=== PATIENT | female | born 1995 | race American Indian/Alaskan Native ===

== ENCOUNTER 2017-10-04 11:28 | Emergency (ER) | payer SELFPAY ==
[2017-10-04 11:57] VITALS: BP 117/63
[2017-10-04 12:50] LABS: Bilirubin,Urine NEG (Negative); Blood,Urine NEG (Negative); Color,Urine Yellow (Yellow); Mucus,Urine FEW /HPF; Protein,Urine <15 mg/dL mg/dL (Negative); Urobilinogen,Urine < 2.0 mg/dL (<2.0)
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
== END 2017-10-04 14:18 | disposition home or self-care (01) ==
LOC: ED 11:28
DX: M54.9 Dorsalgia, unspecified (principal); J45.909 Unspecified asthma, uncomplicated; V87.7XXA Person injured in collision between other specified motor vehicles (traffic), initial encounter; Y93.89 Activity, other specified; Y99.8 Other external cause status; Y92.410 Unspecified street and highway as the place of occurrence of the external cause
CPT/HCPCS: 36415; 81001; 84703; 99283

== ENCOUNTER 2019-05-26 06:22 | Emergency (ER) | payer SELFPAY ==
--- NOTE | 2019-05-26 07:20 | Emergency Department Report ---
- General Chief Complaint: Upper Respiratory Infection Stated Complaint: BODY PAINS/CHILLS Time Seen by Provider: 05/26/19 07:11 Source: patient Mode of arrival: Ambulatory Limitations: No Limitations - History of Present Illness Initial Comments: 23-year-old female with a past medical history of asthma presents to the ER today complaining of flulike symptoms since yesterday. She reports rhinorrhea, nasal congestion, cough, subjective fevers, generalized body aches and chills. She reports pain in the chest when she coughs. She denies any obvious ill contacts. She reports no wheezing or SOB. She does admit that she is out of her inhaler, and she has been out for "a while". She has not currently have a primary care doctor. She reports no GI or symptoms. MD Complaint: fever (subjective), cough, sore throat, rhinorrhea, nasal congestion -: Sudden Severity: moderate Quality: aching Consistency: constant Improves With: other (Mild relief with nyquil) Associated Symptoms: fever, myalgias, rhinorrhea, nasal congestion, cough, chest pain (when coughing). denies: shortness of breath, abdominal pain, nausea, vomiting, diarrhea, rash, confusion, right sweats, weight loss, epistaxis, hoarseness, ear pain Treatments Prior to Arrival: "cold medicine" - Related Data Previous Rx's Medication Instructions Recorded Last Taken Type Cyclobenzaprine [Flexeril] 10 mg PO TID PRN #10 tablet 10/04/17 Unknown Rx Ibuprofen [Motrin] 600 mg PO Q8H PRN #20 tablet 10/04/17 Unknown Rx ALBUTEROL Inhaler (OR & NICU) 2 puff IH QID PRN #8.5 gram 05/26/19 Unknown Rx [ProAir HFA Inhaler] Ibuprofen [Motrin] 800 mg PO Q8HR PRN #30 tablet 05/26/19 Unknown Rx guaiFENesin/DEXTROMETHORPHAN 1 each PO Q12HR PRN #20 tab.er.12h 05/26/19 Unknown Rx [Mucinex Dm ER 600-30 mg Tablet] Allergies Allergy/AdvReac Type Severity Reaction Status Date / Time No Known Allergies Allergy Unverified 10/04/17 11:57 ED Review of Systems ROS: Stated complaint: BODY PAINS/CHILLS Other details as noted in HPI Comment: All other systems reviewed and negative Constitutional: chills, fever ENT: throat pain, congestion Respiratory: cough. denies: shortness of breath, SOB with exertion, SOB at rest, stridor, wheezing Cardiovascular: chest pain (with cough) Gastrointestinal: denies: abdominal pain, nausea, vomiting, diarrhea Genitourinary: denies: dysuria Musculoskeletal: myalgia ED Past Medical Hx - Past Medical History Previous Medical History?: Yes Hx Asthma: Yes - Surgical History Past Surgical History?: No - Social History Smoking Status: Never Smoker Substance Use Type: None - Medications Home Medications: Home Medications Medication Instructions Recorded Confirmed Last Taken Type Cyclobenzaprine [Flexeril] 10 mg PO TID PRN #10 tablet 10/04/17 Unknown Rx Ibuprofen [Motrin] 600 mg PO Q8H PRN #20 tablet 10/04/17 Unknown Rx ALBUTEROL Inhaler (OR & NICU) 2 puff IH QID PRN #8.5 gram 05/26/19 Unknown Rx [ProAir HFA Inhaler] Ibuprofen [Motrin] 800 mg PO Q8HR PRN #30 tablet 05/26/19 Unknown Rx guaiFENesin/DEXTROMETHORPHAN 1 each PO Q12HR PRN #20 tab.er.12h 05/26/19 Unknown Rx [Mucinex Dm ER 600-30 mg Tablet] ED Physical Exam - General Limitations: No Limitations General appearance: alert, in no apparent distress - Head Head exam: Present: atraumatic, normocephalic - Eye Eye exam: Present: normal appearance, PERRL, EOMI Pupils: Present: normal accommodation - ENT ENT exam: Present: mucous membranes moist - Expanded ENT Exam Expanded Mouth exam: Absent: drooling, trismus, muffled voice Throat exam: Positive: tonsillar erythema. Negative: tonsillar exudate, R peritonsillar mass, L peritonsillar mass - Neck Neck exam: Present: normal inspection, full ROM, lymphadenopathy. Absent: tenderness, meningismus - Respiratory Respiratory exam: Present: normal lung sounds bilaterally - Cardiovascular Cardiovascular Exam: Present: regular rate, normal rhythm, normal heart sounds - GI/Abdominal GI/Abdominal exam: Present: soft. Absent: tenderness - Extremities Exam Extremities exam: Present: normal inspection, full ROM - Back Exam Back exam: Present: normal inspection, full ROM - Neurological Exam Neurological exam: Present: alert, altered, oriented X3, CN II-XII intact, nor mal gait - Psychiatric Psychiatric exam: Present: normal affect - Skin Skin exam: Present: intact ED Course Vital Signs 05/26/19 05/26/19 06:28 09:39 Temperature 99.9 F H Pulse Rate 95 H 86 Respiratory 18 16 Rate Blood Pressure 113/70 Blood Pressure 115/74 [Left] O2 Sat by Pulse 100 100 Oximetry ED Medical Decision Making - Radiology Data Radiology results: report reviewed CHEST 2 VIEWS INDICATION: cough. COMPARISON: None FINDINGS: Support devices: None. Heart: Within normal limits. Lungs/pleura: No acute air space or interstitial disease. No pneumothorax. Additional findings: None. IMPRESSION: 1. No acute findings. Signer Name: Ezio Hawkins MD Signed: 05/26/2019 7:45 AM Workstation Name: [id number] Transcribed By: SULAIMAN Dictated By: Ezio Hawkins MD Electronically Authenticated By: Ezio Hawkins MD Signed Date/Time: 05/26/19744 DD/ 4 TD/TT: - Medical Decision Making Patient resting comfortably, no acute pain or respiratory distress. she is not toxic or ill appearing and appears hydrated. VS reviewed and stable. Labs reviewed as well as cxr. strep/flu negative. cxr negative. Suspect viral syndrome. Discussed results, suspected dx and tx plan with patient. Recommend f/u with PCP. Patient stable at time for d/c. Critical care attestation.: If time is entered above; I have spent that time in minutes in the direct care of this critically ill patient, excluding procedure time. ED Disposition Clinical Impression: Viral syndrome Disposition: DC-01 TO HOME OR SELFCARE Is pt being admited?: No Does the pt Need Aspirin: No Condition: Stable Instructions: Viral Syndrome (ED) Prescriptions: Ibuprofen [Motrin] 800 mg PO Q8HR PRN #30 tablet PRN Reason: Pain, Moderate (4-6) guaiFENesin/DEXTROMETHORPHAN [Mucinex Dm ER 600-30 mg Tablet] 1 each PO Q12HR PRN #20 tab.er.12h PRN Reason: Cough ALBUTEROL Inhaler (OR & NICU) [ProAir HFA Inhaler] 2 puff IH QID PRN #8.5 gram PRN Reason: Shortness Of Breath Referrals: PRIMARY CARE, [Primary Care Provider] - 3-5 Days [facility] [Provider Group] - 3-5 Days Forms: Work/School Release Form(ED) Time of Disposition: 09:32
[2019-05-26] MEDS ORDERED: IBUPROFEN 800 MG TAB PO ONE (07:24)
--- NOTE | 2019-05-26 07:50 | XRay Report ---
CHEST 2 VIEWS INDICATION: cough. COMPARISON: None FINDINGS: Support devices: None. Heart: Within normal limits. Lungs/pleura: No acute air space or interstitial disease. No pneumothorax. Additional findings: None. IMPRESSION: 1. No acute findings. Signer Name: Ezio Hawkins MD Signed: 05/26/2019 7:45 AM Workstation Name: [id number]
[2019-05-26 09:40] VITALS: BP 115/74
== END 2019-05-26 09:39 | disposition home or self-care (01) ==
LOC: ED 06:22
DX: B34.9 Viral infection, unspecified (principal); J45.909 Unspecified asthma, uncomplicated; Z79.899 Other long term (current) drug therapy
CPT/HCPCS: 71046; 87116; 87400; 87430